=== PATIENT | female | born 1960 | race Asian ===

== ENCOUNTER 2016-12-10 18:45 | Emergency (ER) | payer OTHER ==
[~2016-12-10] VITALS: Ht 162.6 cm; Wt 73.0 kg
[~2016-12-10 18:45] MED LIST: METF10002 PO
[2016-12-10] MEDS ORDERED: ASPIRIN 81 MG TABLET CHEW PO ONE (19:00)
[2016-12-10 19:07] LABS: HEMATOCRIT 40.6 % (34.6-47.8); HEMOGLOBIN 13.3 g/dL (11.7-16.4)
[2016-12-10 19:16] LABS: BLOOD UREA NITROGEN 14 mg/dL (7-18)
[2016-12-10 19:23] LABS: IS PT STATUS REG ER OR PRE ER? YES
[2016-12-10] MEDS ORDERED: Insulin SQ (19:30)
[2016-12-10] MEDS ORDERED: METF10002 PO (19:30)
[2016-12-10] MEDS ORDERED: ASPIRIN 81 MG TABLET CHEW ONE (19:31)
[2016-12-10 20:11] VITALS: BP 153/80
== END 2016-12-10 20:13 | disposition home or self-care (01) ==
LOC: ED 19:57
DX: R07.89 Other chest pain (principal); E11.9 Type 2 diabetes mellitus without complications; Z79.82 Long term (current) use of aspirin
CPT/HCPCS: 36415; 71010; 80048; 82040; 84484; 85025; 93005; 99285

== ENCOUNTER 2017-03-31 22:37 | Emergency (ER) | payer OTHER ==
[~2017-03-31 22:37] MED LIST changes: +Insulin SQ
[2017-03-31] MEDS ORDERED: SODIUM CHLORIDE FLUSH 10ML SYR IVF ONE (23:00)
[2017-03-31] MEDS ORDERED: ASPIRIN 81 MG TABLET CHEW PO ONE (23:00)
[2017-04-01 00:12] LABS: HEMATOCRIT 43.1 % (34.6-47.8); HEMOGLOBIN 14.7 g/dL (11.7-16.4); WHITE BLOOD COUNT 7.4 x10^3/uL (3.4-10)
[2017-04-01 00:25] LABS: BLOOD UREA NITROGEN 15 mg/dL (7-18)
[2017-04-01 00:29] LABS: IS PT STATUS REG ER OR PRE ER? YES
[2017-04-01] MEDS ORDERED: ASPIRIN 81 MG TABLET CHEW ONE (00:36)
[2017-04-01] MEDS ORDERED: INSULIN REGULAR 100 UNITS/ML, 3ML VIAL SQ-INSULIN ONE (01:00)
[2017-04-01] MEDS ORDERED: INSULIN REGULAR 100 UNITS/ML, 3ML VIAL ONE (01:18)
[2017-04-01 02:22] VITALS: BP 137/76
== END 2017-04-01 02:24 | disposition home or self-care (01) ==
LOC: ED 04-01 02:18
DX: R07.89 Other chest pain (principal); E11.65 Type 2 diabetes mellitus with hyperglycemia; Z79.4 Long term (current) use of insulin
CPT/HCPCS: 36415; 71020; 80048; 82040; 82962; 84484; 85025; 93005; 96372

== ENCOUNTER 2018-01-15 07:10 | Emergency (ER) | payer OTHER ==
[~2018-01-15] VITALS: Ht 157.5 cm; Wt 80.0 kg
[2018-01-15 08:15] LABS: BASOPHILS # (AUTO) 0.03 x10^3/uL (0-0.1); BASOPHILS % (AUTO) 1 % (0-1); EOSINOPHILS # (AUTO) 0.21 x10^3/uL (0-0.4); EOSINOPHILS % (AUTO) 4 % (1-7); LYMPHOCYTES % (AUTO) 29 % (22-44); MD NO; MEAN CORPUSCULAR HEMOGLOBIN 29.1 pg (27.0-34.8); MEAN CORPUSCULAR HGB CONC 33.5 g/dL (32.4-35.8); MEAN CORPUSCULAR VOLUME 86.9 fL (80-100); MEAN PLATELET VOLUME 8.6 fL (7.4-10.4); MONOCYTES % (AUTO) 8 % (2-9); NEUTROPHILS # (AUTO) 3.05 x10^3/uL (1.8-6.8); NEUTROPHILS % (AUTO) 59 % (42-75); PLATELET COUNT 288 x10^3/uL (130-400); RED BLOOD COUNT 5.04 x10^6/uL (3.82-5.3); RED CELL DISTRIBUTION WIDTH 12.6 % (9.6-15.2)
[2018-01-15 08:25] LABS: ALBUMIN 3.7 g/dL (3.4-5.0); CALCIUM 9.1 mg/dL (8.5-10.1)
[2018-01-15 08:35] LABS: ANION GAP 7 mmol/L (5-15); CHLORIDE 104 mmol/L (98-107)
[2018-01-15 08:52] VITALS: BP 142/84
== END 2018-01-15 09:00 | disposition home or self-care (01) ==
LOC: ED 08:54
DX: M54.6 Pain in thoracic spine (principal); M25.512 Pain in left shoulder; E11.9 Type 2 diabetes mellitus without complications
CPT/HCPCS: 36415; 71045; 80048; 82040; 85025; 85379; 93005; 99285

== ENCOUNTER 2019-02-19 08:29 | Outpatient (CLI) | payer OTHER | END 2019-02-19 23:59 | disposition home or self-care (01) | LOC: CFH 08:29 | PROVIDERS: ATTEND Family Medicine | DX: Z12.31 Encounter for screening mammogram for malignant neoplasm of breast (principal) | CPT/HCPCS: 77063; 77067 ==

== ENCOUNTER 2020-02-16 10:12 | Emergency (ER) | payer OTHER ==
[~2020-02-16] VITALS: Ht 170.2 cm; Wt 77.9 kg
--- NOTE | 2020-02-16 10:32 | NUR ---
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
--- NOTE | 2020-02-16 10:45 | NUR ---
ASSUMED CARE OF PT AT THIS TIME FROM TRIAGE. EKG COMPLETED IN TRIAGE. DR. LEVIN AT BEDSIDE FOR EVALUATION. PT AMBULATED TO ROOM WITH STEADY GAIT ACCOMPANIED BY DAUGHTER. 59 Y/O F PRESENTS STATING "CP THAT STARTED YESTERDAY, SHARP, FEEL IT THROUGHT MY CHEST AND INTO MY BACK, HAVE ALSO BEEN COUGHING FOR LAST SEVERAL MONTHS." STERNUM, LEFT CHEST, LEFT UPPER FIXING CARPENTER TO PALPATION, RATES PAIN 3/10 WITH PALPATION. SKIN PWD. CONT PULSE OX, BP, CARDIAC MONITORS APPLIED. VSS. SR ON MONITOR. DENIES SOB, FEVER, CHILLS, RECENT TRAVEL OR EXPOSURE TO COVID + PERSONS, LOSS OF TASTE OR SMELL, N/D/V, BODY ACHES. CALL LIGHT IN REACH. FALL PRECAUTIONS IN PLACE. A&OX4. AWAITING ORDERS FROM ERP.
--- NOTE | 2020-02-16 11:06 | NUR ---
XRAY AT BEDSIDE
--- NOTE | 2020-02-16 11:13 | NUR ---
PT UP FOR RECHECK, REQUESTING WATER, GIVEN PER DR. POONAM PARKER, PT TOLERATING PO FLUIDS WELL. VSS. DENIES ANY CP, SOB AT THIS TIME. CALL LIGHT IN REACH. SR ON MONITOR. FALL PRECUATIONS IN PLACE. DENIES NEED TO USE RESTROOM
--- NOTE | 2020-02-16 11:15 | NUR ---
PT CLEARED FOR D/C BY DR. LEVIN, AWAITING CHART AND DISCHARE PAPERS
[2020-02-16 11:25] VITALS: BP 123/65
== END 2020-02-16 11:37 | disposition home or self-care (01) ==
LOC: ED 11:10
DX: R07.89 Other chest pain (principal); R05 Cough; E11.9 Type 2 diabetes mellitus without complications
CPT/HCPCS: 71045; 93005; 99283

== ENCOUNTER → 2020-04-14 | Outpatient (CLI) | payer OTHER | END | disposition home or self-care (01) | LOC: CFH 08:28 | PROVIDERS: ATTEND Family Medicine | DX: Z12.31 Encounter for screening mammogram for malignant neoplasm of breast (principal) | CPT/HCPCS: 77063; 77067 ==

== ENCOUNTER 2020-06-22 23:41 | Emergency (ER) | payer OTHER ==
[~2020-06-22] VITALS: Ht 165.1 cm; Wt 88.4 kg
--- NOTE | 2020-06-23 00:20 | NUR ---
Pt ambulated to room 22 and placed on cr monitor, and geotechnical laboratory technician to bedside to draw blood and sent to lab. report to primary RN.
[2020-06-23] MEDS ORDERED: SODIUM CHLORIDE 0.9% 1,000ML IVBOLUS ONE (00:30)
[2020-06-23] MEDS ORDERED: ONDANSETRON 2MG/ML, 2ML IVPush ONE (00:30)
[2020-06-23] MEDS ORDERED: SODIUM CHLORIDE FLUSH 10ML SYR IVF ONE (00:30)
[2020-06-23 00:45] LABS: ALBUMIN 3.7 g/dL (3.4-5.0); ANION GAP 9 mmol/L (5-15); CALCIUM 9.1 mg/dL (8.5-10.1); CHLORIDE 104 mmol/L (98-107); CREATININE 1.04 mg/dL (0.55-1.02)
[2020-06-23 00:48] LABS: BASOPHILS % (AUTO) 1 % (0-1); EOSINOPHILS % (AUTO) 6 % (1-7); LYMPHOCYTES % (AUTO) 19 % (22-44); MEAN CORPUSCULAR HEMOGLOBIN 29.7 pg (27.0-34.8); MEAN PLATELET VOLUME 8.5 fL (7.4-10.4); MONOCYTES % (AUTO) 4 % (2-9); NEUTROPHILS % (AUTO) 71 % (42-75); PLATELET COUNT 284 x10^3/uL (130-400); RED BLOOD COUNT 4.18 x10^6/uL (3.82-5.3); RED CELL DISTRIBUTION WIDTH 13.2 % (9.6-15.2)
[2020-06-23 00:49] LABS: MD NO; TROPONIN I < 0.015 ng/mL (0.000-0.045)
[2020-06-23] MEDS ORDERED: ONDANSETRON 2MG/ML, 2ML ONE (01:04)
--- NOTE | 2020-06-23 02:02 | NUR ---
REPORT GIVEN TO GARY AGOSTO.
--- NOTE | 2020-06-23 02:11 | NUR ---
BEDSIDE REPORT FROM JUAN EVGA, PT CARE TRANSFERRED AT THIS TIME. PT NAD, DENIES ADDITIONAL QUESTIONS OR NEEDS AT THIS TIME, WCTM. AT BS
[2020-06-23 02:16] VITALS: BP 101/49
--- NOTE | 2020-06-23 02:47 | NUR ---
Patient given discharge instructions and they have confirmed that they understand the instructions. Patient ambulatory with steady gait. NAD, DENIES ADDITIONAL QUESTIONS OR NEEDS, NO PERSONAL BELONGINGS LEFT IN ROOM AFTER DC.
== END 2020-06-23 02:54 | disposition home or self-care (01) ==
LOC: ED 06-23 01:43
DX: R11.2 Nausea with vomiting, unspecified (principal); I49.3 Ventricular premature depolarization; R94.31 Abnormal electrocardiogram [ECG] [EKG]
CPT/HCPCS: 36415; 80048; 82040; 82962; 84484; 85025; 93005; 96361; 96374; 99284; J2405; J7030

== ENCOUNTER 2020-08-11 07:50 | Emergency (ER) | payer OTHER ==
[~2020-08-11] VITALS: Ht 157.5 cm; Wt 80.9 kg
[2020-08-11] MEDS ORDERED: PIOG30TA67 PO (08:56)
[2020-08-11] MEDS ORDERED: GLIM4TAB8 PO (08:56)
--- NOTE | 2020-08-11 09:15 | NUR ---
SBAR REPORT GIVEN TO JIMMY VEGA.
--- NOTE | 2020-08-11 09:21 | NUR ---
PT. REMAINS A & O X 4 WITH A GCS OF 15. LUNGS ARE CTA THROUGHOUT. S1 S2 NOTED WITHOUT MURMURS, RUBS OR GALLOPS. SKIN IS PINK, WARM AND DRY WITH PULSES +2 THROUGHOUT. VITALS MONITORED. PT. RESTING WITHOUT CONCERNS. SIDERAILS REMAIN UP X [address] WITH THE CALL LIGHT IN PLACE.
--- NOTE | 2020-08-11 09:48 | NUR ---
PT. WAS GIVEN DISCHARGE INSTRUCTIONS AND A SCRIPT WITH UNDERSTANDING VERBALIZED ALONG WITH WILLINGNESS TO COMPLY. PT. WAS AMBULATORY TO THE LOBBY, STEADY GAIT.
[2020-08-11 09:49] VITALS: BP 161/78
== END 2020-08-11 09:51 | disposition home or self-care (01) ==
LOC: ED 08:03
DX: S20.219A Contusion of unspecified front wall of thorax, initial encounter (principal); J18.9 Pneumonia, unspecified organism; E11.9 Type 2 diabetes mellitus without complications; W01.0XXA Fall on same level from slipping, tripping and stumbling without subsequent striking against object, initial encounter; Y93.89 Activity, other specified; Y92.009 Unspecified place in unspecified non-institutional (private) residence as the place of occurrence of the external cause; Y99.8 Other external cause status
CPT/HCPCS: 99283

== ENCOUNTER 2020-08-14 22:38 | Emergency (ER) | payer OTHER ==
[~2020-08-14] VITALS: Ht 170.2 cm; Wt 81.2 kg
[~2020-08-14 22:38] MED LIST changes: +GLIM4TAB8 PO; +PIOG30TA67 PO
[2020-08-15] MEDS ORDERED: MORPHINE SULFATE 4 MG/ML, 1ML IVPush PRN (01:00)
[2020-08-15] MEDS ORDERED: KETOROLAC 30 MG/1 ML IV ONE (01:00)
[2020-08-15] MEDS ORDERED: SODIUM CHLORIDE FLUSH 10ML SYR IVF ONE (01:00)
[2020-08-15] MEDS ORDERED: ONDANSETRON 2MG/ML, 2ML IVPush ONE (01:00)
[2020-08-15 01:19] LABS: BASOPHILS % (AUTO) 1 % (0-1); EOSINOPHILS % (AUTO) 14 % (1-7); LYMPHOCYTES % (AUTO) 35 % (22-44); MEAN CORPUSCULAR HEMOGLOBIN 29.6 pg (27.0-34.8); MEAN CORPUSCULAR HGB CONC 32.7 g/dL (32.4-35.8); MEAN PLATELET VOLUME 8.4 fL (7.4-10.4); MONOCYTES % (AUTO) 7 % (2-9); NEUTROPHILS % (AUTO) 43 % (42-75); PLATELET COUNT 315 x10^3/uL (130-400); RED BLOOD COUNT 4.42 x10^6/uL (3.82-5.3); RED CELL DISTRIBUTION WIDTH 12.6 % (9.6-15.2)
[2020-08-15 01:21] LABS: MD NO
[2020-08-15 01:26] LABS: ALANINE AMINOTRANSFERASE 17 U/L (12-78); ANION GAP 4 mmol/L (5-15); CALCIUM 9.5 mg/dL (8.5-10.1); CHLORIDE 102 mmol/L (98-107); CREATININE 1.28 mg/dL (0.55-1.02)
[2020-08-15] MEDS ORDERED: MORPHINE SULFATE 4 MG/ML, 1ML ONE (01:30)
[2020-08-15] MEDS ORDERED: ONDANSETRON 2MG/ML, 2ML ONE (01:30)
[2020-08-15] MEDS ORDERED: KETOROLAC 30 MG/1 ML ONE (01:30)
[2020-08-15 01:31] LABS: ALKALINE PHOSPHATASE 61 U/L (45-117); BILIRUBIN,TOTAL 0.3 mg/dL (0.2-1.0); TOTAL PROTEIN 8.6 g/dL (6.4-8.2); TROPONIN I < 0.015 ng/mL (0.000-0.045)
[2020-08-15] MEDS ORDERED: OMNIPAQUE 350 MG/ML, 75ML BOTTLE ONE (01:54)
[2020-08-15 02:50] VITALS: BP 145/78
== END 2020-08-15 03:07 | disposition home or self-care (01) ==
LOC: ED 08-15 00:56
DX: G89.11 Acute pain due to trauma (principal); R07.89 Other chest pain; X58.XXXA Exposure to other specified factors, initial encounter; Y93.89 Activity, other specified; Y92.89 Other specified places as the place of occurrence of the external cause; Y99.8 Other external cause status
CPT/HCPCS: 36415; 71260; 80053; 84484; 85025; 93005; 96374; 96375; 99285; J1885; J2270; J2405; Q9967

== ENCOUNTER 2020-10-10 21:21 | Emergency (ER) | payer OTHER ==
[~2020-10-10] VITALS: Ht 170.2 cm; Wt 81.0 kg
[2020-10-10 21:24] VITALS: BP 131/70
[2020-10-10] MEDS ORDERED: IBUPROFEN 200 MG TABLET ONE (22:19)
[2020-10-10] MEDS ORDERED: IBUPROFEN 200 MG TABLET PO ONE (22:30)
== END 2020-10-10 23:40 | disposition home or self-care (01) ==
LOC: ED 21:26
DX: M25.552 Pain in left hip (principal); M61.9 Calcification and ossification of muscle, unspecified; M61.40 Other calcification of muscle, unspecified site
CPT/HCPCS: 99283

== ENCOUNTER → 2020-11-01 | Outpatient (CLI) | payer OTHER | END | disposition home or self-care (01) | LOC: CFH 07:47 | PROVIDERS: ATTEND Physician Assistant | DX: R92.2 Inconclusive mammogram (principal); N64.4 Mastodynia; N64.52 Nipple discharge | CPT/HCPCS: 76642; 77061; 77065; G0279 ==

== ENCOUNTER → 2020-12-06 | Outpatient (CLI) | payer OTHER | END | disposition home or self-care (01) | LOC: CFH 10:07 | PROVIDERS: ATTEND Physician Assistant | DX: N61.1 Abscess of the breast and nipple (principal) | CPT/HCPCS: 76642 ==